=== PATIENT | female | born 1990 | race American Indian/Alaskan Native ===

== ENCOUNTER 2016-05-04 10:39 | Emergency (ER) | payer OTHER ==
[2016-05-04 12:10] VITALS: BP 156/84
[2016-05-04] MEDS ORDERED: TYLENOL PO ONE (12:10)
[2016-05-04 12:57] LABS: Hematocrit 37.4 % (30.3-42.9); Hemoglobin 12.3 gm/dl (10.1-14.3); Mean Corpuscular HGB Conc 33 % (30-34); Mean Corpuscular Hemoglobin 29 pg (28-32); Mean Corpuscular Volume 87 fl (79-97); Platelet Count 278 K/mm3 (140-440); Red Blood Count 4.31 M/mm3 (3.65-5.03); Red Cell Distribution Width 13.7 % (13.2-15.2); White Blood Count 4.1 K/mm3 (4.5-11.0)
[2016-05-04 13:18] LABS: Anion Gap 19 mmol/L; BUN/Creatinine Ratio 8.75; Blood Urea Nitrogen 7 mg/dL (7-17); Calcium 9.3 mg/dL (8.4-10.2); Carbon Dioxide 23 mmol/L (22-30); Chloride 97.5 mmol/L (98-107); Glucose 76 mg/dL (65-100); Potassium 3.8 mmol/L (3.6-5.0); Sodium 136 mmol/L (137-145)
[2016-05-04 13:40] LABS: Bilirubin,Urine NEG (Negative); Blood,Urine NEG (Negative); Ketones,Urine TR mg/dL (Negative); Leukocyte Esterase,Urine TR (Negative); Mucus,Urine 3+ /HPF; Nitrite,Urine NEG (Negative)
[2016-05-04 13:49] LABS: Basophils % (Manual) 0 % (0.0-1.8); Blastocytes % (Manual) 0 %; Eosinophils % (Manual) 0 % (0.0-4.3); RBC Morphology Normal
[2016-05-04 13:50] LABS: Diff Status Complete
[2016-05-04] MEDS ORDERED: TORADOL IM ONE (19:59)
[2016-05-04] MEDS ORDERED: ZOFRAN ODT PO ONE (19:59)
[2016-05-04] MEDS ORDERED: NORCO 7.5/325 PO ONE (19:59)
[2016-05-04] MEDS ORDERED: TESSALON PERLES PO ONE (20:00)
[2016-05-04] MEDS ORDERED: MUCINEX ER PO ONE (20:00)
--- NOTE | 2016-05-04 20:14 | Emergency Department Report ---
HPI - General Chief Complaint: Nausea/Vomiting/Diarrhea Time Seen by Provider: 05/04/16 19:43 - HPI HPI: The patient is a 25-year-old female who presents for evaluation of cough and chest pain. Patient reports a mild productive cough for the past one day, and associated with generalized bodyaches, and bilateral moderate to severe aching in quality chest pain, exacerbated with coughing and improved at rest. She has also experienced some intermittent nausea and nonbilious, nonbloody emesis. The patient denies fever, trauma to the chest wall, syncope, dyspnea, hemoptysis , abdominal pain, unilateral leg swelling, recent immobilization, history of DVT or PE, recent cancer, history of cocaine or other stimulant use, history of congenital heart disease, or history of sudden cardiac in family members. ED Past Medical Hx - Past Medical History Hx Hypertension: Yes - Social History Smoking Status: Current Every Day Smoker Substance Use Type: None - Medications Home Medications: Home Medications Medication Instructions Recorded Confirmed Last Taken Type Acetaminophen [Tylenol] 500 mg PO Q6HR #20 tablet 05/04/16 Unknown Rx Ibuprofen [Motrin] 800 mg PO Q6HR PRN #20 tablet 05/04/16 Unknown Rx Ondansetron [Zofran TAB] 4 mg PO Q8HR PRN #14 tablet 05/04/16 Unknown Rx Promethazine /Codeine 5 ml PO Q6H PRN #120 ml 05/04/16 Unknown Rx [Phenergan/Codeine 6.25-10 mg/5Ml] ED Review of Systems ROS: Stated complaint: BODY ACHES/VOMITING/FEVER/FLU SYMPTOMS Other details as noted in HPI Constitutional: denies: fever ENT: denies: throat or neck pain Respiratory: reports cough, denies:shortness of breath Cardiovascular: reports chest pain Endocrine: denies unexplained weight loss or gain Gastrointestinal: denies: abdominal pain, nausea Genitourinary: denies: dysuria Musculoskeletal: denies: leg swelling Skin: denies: rash Neurological: denies: headache Hematological/Lymphatic: denies: easy bleeding or easy bruising Psych: denies sadness or hopelessness Physical Exam - Physical Exam Vital Signs: Vital Signs 05/04/16 05/04/16 12:05 12:13 Temperature 101.0 F H Pulse Rate 87 Respiratory 19 18 Rate Blood Pressure 156/84 O2 Sat by Pulse 100 Oximetry Physical Exam: General: well-nourished, well-developed, no acute distress Head: Normocephalic, atraumatic Eyes: normal sclera ENT: Mucous membranes are pink and moist, bilateral nasal congestion present Neck: trachea midline, neck supple, No neck stiffness, no cervical adenopathy Respiratory: Breath sounds equal bilaterally, no wheezing, rales, or rhonchi, bronchitic upper airway end-expiratory wheeze present Cardio: S1 and S2 present, no murmurs, rubs, gallops, capillary refill is brisk Chest wall: positive bilateral anterior chest wall tenderness to palpation present, pain reproduced with movement of the arms Abdomen: Normoactive bowel sounds, soft abdomen, no rigidity, no guarding or rebound tenderness Musc: No pitting edema Skin: No rash Neuro: no facial drooping, normal speech Psych: Normal affect ED Course Vital Signs 05/04/16 05/04/16 12:05 12:13 Temperature 101.0 F H Pulse Rate 87 Respiratory 19 18 Rate Blood Pressure 156/84 O2 Sat by Pulse 100 Oximetry ED Medical Decision Making - Lab Data Result diagrams: 05/04/16 12:36 05/04/16 12:36 - Medical Decision Making The patient was seen and examined by myself. The patient is placed on a cardiac technologist and continuous pulse ox. On initial evaluation, the patient was found to be in no distress, with mild fever of 101F. Evaluation orders were placed. EKG was negative for findings suggestive of acute cardiac infarct. The patient is given Tessalon Perles for their cough and Mucinex for nasal congestion. She is given Tylenol for her fever, Zofran for nausea, and an IM dose of Toradol for her pain. Chest x-ray is negative for pulmonary vessel congestion, pleural effusion, focal consolidation, or other acute cardio pulmonary disease process. Lab results were not concerning. The patient was reevaluated and reported that their symptoms were markedly improved. On reexamination the patient is found to have normal respiratory rate and O2 sat on pulse oximetry, with no costal retractions or diminishment of breath sounds on auscultation. The patient is stable for discharge with outpatient follow- up. The patient is given follow-up and return instructions. The patient expressed understanding and agreed with the plan. The patient is discharged in stable condition. Critical care attestation.: If time is entered above; I have spent that time in minutes in the direct care of this critically ill patient, excluding procedure time. ED Disposition Clinical Impression: Acute viral syndrome, Upper respiratory infection, acute, Myalgia, Acute chest wall pain Disposition: DISCHARGED TO HOME OR SELFCARE Is pt being admited?: No Does the pt Need Aspirin: No Condition: Stable Instructions: Viral Syndrome (ED), Upper Respiratory Infection (ED), Musculoskeletal Pain (ED), Chest Pain (ED) Referrals: PRIMARY CARE, [Primary Care Provider] - 3-5 Days Time of Disposition: 20:14
--- NOTE | 2016-05-06 07:43 | XRay Report ---
AP CHEST: HISTORY: chest pain AP view of the chest demonstrates a normal mediastinal and cardiac contour with clear lungs and normal bony and soft tissue structures. IMPRESSION: Unremarkable AP chest.
== END 2016-05-04 20:43 | disposition home or self-care (01) ==
LOC: ED 10:39
DX: B34.9 Viral infection, unspecified (principal); J06.9 Acute upper respiratory infection, unspecified; F17.200 Nicotine dependence, unspecified, uncomplicated; I10 Essential (primary) hypertension
CPT/HCPCS: 36415; 71010; 80048; 81001; 84703; 85007; 85025; 96372; 99284; J1885; Q0162

== ENCOUNTER 2016-10-25 21:42 | Emergency (ER) | payer MEDICAID ==
[2016-10-25 22:19] VITALS: BP 131/83
[2016-10-25] MEDS ORDERED: TYLENOL PO ONE (22:19)
[2016-10-26 00:07] LABS: Bilirubin,Urine NEG (Negative); Blood,Urine NEG (Negative); Ketones,Urine 20 mg/dL (Negative); Leukocyte Esterase,Urine MOD (Negative); Mucus,Urine 3+ /HPF; Nitrite,Urine NEG (Negative)
--- NOTE | 2016-11-15 15:00 | ED Elopement Review ---
ED Pt Elopement review - Results review Lab results: Laboratory Tests 10/25/16 Unknown Urine Color Zainab Urine Turbidity Clear Urine pH 5.0 Ur Specific [place] 1.033 H Urine Protein 30 mg/dl Urine Glucose (UA) Neg Urine Ketones 20 Urine Blood Neg Urine Nitrite Neg Urine Bilirubin Neg Urine Urobilinogen 4.0 Ur Leukocyte Esterase Mod Urine WBC (Auto) 24.0 H Urine RBC (Auto) 9.0 U Epithel Cells (Auto) 17.0 H Urine Mucus 3+ Urine HCG, Qual Negative - Call Back decision Pt Call Back Decision: Pt to F/U with PMD
== END 2016-10-26 04:25 | disposition left against medical advice (07) ==
LOC: ED 21:42
DX: R50.9 Fever, unspecified (principal); Z53.21 Procedure and treatment not carried out due to patient leaving prior to being seen by health care provider
CPT/HCPCS: 81001; 81025

== ENCOUNTER 2016-10-26 07:15 | Emergency (ER) | payer MEDICAID ==
[2016-10-26 07:46] LABS: Hematocrit 38.5 % (30.3-42.9); Hemoglobin 12.8 gm/dl (10.1-14.3); Mean Corpuscular HGB Conc 33 % (30-34); Mean Corpuscular Hemoglobin 29 pg (28-32); Mean Corpuscular Volume 89 fl (79-97); Platelet Count 305 K/mm3 (140-440); Red Blood Count 4.35 M/mm3 (3.65-5.03); White Blood Count 5.6 K/mm3 (4.5-11.0)
--- NOTE | 2016-10-26 08:07 | Emergency Department Report ---
ED Fever HPI - General Chief Complaint: Fever Stated Complaint: FEVER/BODY PAIN Time Seen by Provider: 10/26/16 07:55 Source: patient, family Exam Limitations: no limitations - History of Present Illness Initial Comments: Patient here complaining of fever and body aches for 2 days. She says she was seen here last night and they did a urine test on her but she couldn't wait to be seen so she went home and she is returned this morning. She is reporting that she is having in generalized body ache that is 10 out of 10. Reports abdominal cramping on and off. She reports some nausea without any vomiting. Reports urinary frequency but no burning in or urgency. Denies any diarrhea. She says she took [id number] Tylenol and it's not helping. She denies any coughing, chest pain or shortness of breath. Denies any neck pain or stiffness. Denies any congestion. Denies any earache. Denies any vaginal bleeding or discharge. Menstrual cycle was 09/30/2016. Timing/Duration: yesterday Fever Severity/Quality: low grade Fever Therapy STROKE COORDINATOR: Tylenol Associated Symptoms: abdominal pain, muscle aches, nausea/vomiting. denies: chest pain, confusion, cough, diaphoresis, headache, rash, shortness of breath, sore throat, stiff neck, syncope, weakness ED Review of Systems ROS: Stated complaint: FEVER/BODY PAIN Other details as noted in HPI Comment: All other systems reviewed and negative Constitutional: chills, fever Eyes: denies: eye pain, eye discharge ENT: denies: ear pain, throat pain Respiratory: no symptoms reported Cardiovascular: denies: chest pain, palpitations, edema, syncope Gastrointestinal: abdominal pain, nausea. denies: vomiting, diarrhea, constipation, hematemesis, melena, hematochezia Genitourinary: frequency. denies: urgency, dysuria, hematuria, discharge Skin: denies: rash Neurological: denies: headache, weakness, numbness, paresthesias, confusion, abnormal gait, vertigo ED Past Medical Hx - Past Medical History Previous Medical History?: Yes Hx Hypertension: Yes (with ) - Surgical History Past Surgical History?: No - Family History Family history: no significant - Social History Smoking Status: Current Every Day Smoker Substance Use Type: Alcohol, Marijuana, Non Opiate Pain Other Social History: Singe - Medications Home Medications: Home Medications Medication Instructions Recorded Confirmed Last Taken Type Acetaminophen [Tylenol] 500 mg PO Q6HR #20 tablet 05/04/16 Unknown Rx Promethazine /Codeine 5 ml PO Q6H PRN #120 ml 05/04/16 Unknown Rx [Phenergan/Codeine 6.25-10 mg/5Ml] Ibuprofen [Motrin 800 MG tab] 800 mg PO Q6HR PRN #20 tablet 10/26/16 Unknown Rx Nitrofurantoin [place]/M-Cryst 100 mg PO Q12HR #14 capsule 10/26/16 Unknown Rx [Macrobid CAP] Ondansetron [Zofran TAB] 4 mg PO Q8HR PRN #14 tablet 10/26/16 Unknown Rx ED Physical Exam - General Limitations: No Limitations ED Course Vital Signs 10/26/16 10/26/16 07:19 09:52 Temperature 99.5 F Pulse Rate 103 H 89 Respiratory 18 Rate Blood Pressure 140/95 O2 Sat by Pulse 100 Oximetry - Reevaluation(s) Reevaluation #1: 10/26/16 10:01 Patient given 1 L of IV fluid normal saline, Zofran 4 mg IV, Toradol 30 mg IV. She was also given Tylenol 650 mg 1 dose for body aches and low-grade fever. He is stable and says she feels better. Urine specimen sent for cultures. ED Medical Decision Making - Lab Data Result diagrams: 10/26/16 07:32 10/26/16 07:32 Lab Results 10/26/16 10/26/16 10/26/16 Range/Units 07:32 07:32 07:32 WBC 5.6 (4.5-11.0) K/mm3 RBC 4.35 (3.65-5.03) M/mm3 Hgb 12.8 (10.1-14.3) gm/dl Hct 38.5 (30.3-42.9) % MCV 89 (79-97) fl MCH 29 (28-32) pg MCHC 33 (30-34) % RDW 14.0 (13.2-15.2) % Plt Count 305 (140-440) K/mm3 [place] % (Auto) Property Supervisor Add Manual Diff Complete Total Counted 100 Seg Neuts % (Manual) 63.0 (40.0-70.0) % Band Neutrophils % 0 % Lymphocytes % (Manual) 22.0 (13.4-35.0) % Reactive Lymphs % (Man) 0 % Monocytes % (Manual) 14.0 H (0.0-7.3) % Eosinophils % (Manual) 1.0 (0.0-4.3) % Basophils % (Manual) 0 (0.0-1.8) % Metamyelocytes % 0 % Myelocytes % 0 % Promyelocytes % 0 % Blast Cells % 0 % Nucleated RBC % Not Reportable Seg Neutrophils # Man 3.5 (1.8-7.7) K/mm3 Band Neutrophils # 0.0 K/mm3 Lymphocytes # (Manual) 1.2 (1.2-5.4) K/mm3 Abs React Lymphs (Man) 0.0 K/mm3 Monocytes # (Manual) 0.8 (0.0-0.8) K/mm3 Eosinophils # (Manual) 0.1 (0.0-0.4) K/mm3 Basophils # (Manual) 0.0 (0.0-0.1) K/mm3 Metamyelocytes # 0.0 K/mm3 Myelocytes # 0.0 K/mm3 Promyelocytes # 0.0 K/mm3 Blast Cells # 0.0 K/mm3 WBC Morphology Not Reportable Hypersegmented Neuts Not Reportable Hyposegmented Neuts Not Reportable Hypogranular Neuts Not Reportable Smudge Cells Not Reportable Toxic Granulation Not Reportable Toxic Vacuolation Not Reportable Dohle Bodies Not Reportable Pelger-Huet Anomaly Not Reportable Sosa Rods Not Reportable Platelet Estimate Appears normal Clumped Platelets Not Reportable Plt Clumps, EDTA Not Reportable Large Platelets Not Reportable Giant Platelets Not Reportable Platelet Satelliting Not Reportable Plt Morphology Comment Not Reportable RBC Morphology Normal Dimorphic RBCs Not Reportable Polychromasia Not Reportable Hypochromasia Not Reportable Poikilocytosis Not Reportable Anisocytosis Not Reportable Microcytosis Not Reportable Macrocytosis Not Reportable Spherocytes Not Reportable Pappenheimer Bodies Not Reportable Sickle Cells Not Reportable Target Cells Not Reportable Tear Drop Cells Not Reportable Ovalocytes Not Reportable Helmet Cells Not Reportable [place] Bodies Not Reportable [place] Rings Not Reportable [place] Cells Not Reportable Bite Cells Not Reportable Crenated Cell Not Reportable Elliptocytes Not Reportable Acanthocytes (Spur) Not Reportable Rouleaux Not Reportable Hemoglobin C Crystals Not Reportable Schistocytes Not Reportable Malaria parasites Not Reportable [place] Bodies Not Reportable Hem Pathologist Commnt No Sodium 139 (137-145) mmol/L Potassium 4.1 (3.6-5.0) mmol/L Chloride 100.2 (98-107) mmol/L Carbon Dioxide 25 (22-30) mmol/L Anion Gap 18 mmol/L BUN 9 (7-17) mg/dL Creatinine 0.7 (0.7-1.2) mg/dL Estimated GFR > 60 ml/min BUN/Creatinine Ratio 12.85 % Glucose 92 (65-100) mg/dL Calcium 9.2 (8.4-10.2) mg/dL Lipase 25 (13-60) units/L Urine culture pending that was taken this morning. Lab work for 10/25/2016 for urinalysis which is positive for urinary tract infection. Urine was slightly contaminated but she has positive white count and moderate leukocyte Estrace and ketones. test negative - Medical Decision Making ED course: Returning from yesterday complaining of feeling sick with nausea, urinary frequency, generalized body aches. She had a urine test done yesterday with and she says she left because she was waiting too long. Patient and urine that was done 10/25/2016. UA positive ketones 20 ,Positive for white blood cell and leukocyte Estrace, also positive for epithelial cell at 17 which is slightly contaminated. Urine culture sent today. She had CBC and BMP that was done today that were in normal limits. Patient given normal saline 1 L due to mild dehydration, Tylenol 650 mg by mouth for bodyaches and low-grade fever, Toradol 30 mg IV and Zofran 4 mg IV for nausea. Patient feels better and she is no longer nauseous. Discussed the patient diagnosis and treatment plan and I also discussed her lab results with her. She voiced understanding of discharge diagnosis and treatment plan. She does have a primary care doctor so she will follow-up with PCP Laboratory: UA 10/25/2016 with moderate leukocyte Estrace, positive white blood cell with contamination of epithelial cell. Positive ketone at 20. Urine hCG negative for , CBC and BMP stable Assessment/Plan 1. Acute cystitis without hematuria 2. Mild dehydration with positive ketones at 20 3. Nausea without vomiting 4. Urinary frequency 5. Fever in adults 6. Body aches Patient given prescription for Phenergan, Motrin and Macrobid. Hydration encouraged. She is to follow up with her primary care physician in 2-3 days Critical care attestation.: If time is entered above; I have spent that time in minutes in the direct care of this critically ill patient, excluding procedure time. ED Disposition Clinical Impression: Acute cystitis without hematuria, Nausea alone, Body aches, Fever in adult, Urinary frequency Disposition: TO HOME OR SELFCARE Is pt being admited?: No Does the pt Need Aspirin: No Condition: Stable Instructions: Urinary Tract Infection in Women (ED), Fever in Adults (ED), Acute Nausea and Vomiting (ED) Additional Instructions: Take Macrobid for urinary tract infection Take Zofran as needed for nausea or vomiting and Please increase her fluid intake to 2-3 L a day. call your primary care office today to schedule an appointment Prescriptions: Ibuprofen [Motrin 800 MG tab] 800 mg PO Q6HR PRN #20 tablet PRN Reason: Pain Nitrofurantoin [place]/M-Cryst [Macrobid CAP] 100 mg PO Q12HR #14 capsule Ondansetron [Zofran TAB] 4 mg PO Q8HR PRN #14 tablet PRN Reason: Nausea Referrals: PRIMARY CARE,MD [Primary Care Provider] - 2-3 Days Forms: Work/School Release Form(ED)
[2016-10-26] MEDS ORDERED: NACL 0.9% 1000 ML 1,000 ML IV ONE (08:08)
[2016-10-26] MEDS ORDERED: TORADOL IV ONE (08:08)
[2016-10-26] MEDS ORDERED: ZOFRAN IV ONE (08:08)
[2016-10-26] MEDS ORDERED: TYLENOL PO ONE (08:09)
[2016-10-26 08:10] LABS: Anion Gap 18 mmol/L; BUN/Creatinine Ratio 12.85; Blood Urea Nitrogen 9 mg/dL (7-17); Calcium 9.2 mg/dL (8.4-10.2); Carbon Dioxide 25 mmol/L (22-30); Chloride 100.2 mmol/L (98-107); Glucose 92 mg/dL (65-100); Potassium 4.1 mmol/L (3.6-5.0); Sodium 139 mmol/L (137-145)
[2016-10-26] MEDS ORDERED: ROCEPHIN/NS 1 GM/50 ML 1 GM/50 ML BAG IV ONE (08:32)
[2016-10-26 08:41] LABS: Basophils % (Manual) 0 % (0.0-1.8); Blastocytes % (Manual) 0 %; Diff Status Complete; RBC Morphology Normal
[2016-10-26 10:21] VITALS: BP 120/69
[2016-10-26 11:06] LABS: Bacteria,Urine 1+ /HPF (Negative); Bilirubin,Urine NEG (Negative); Blood,Urine NEG (Negative); Ketones,Urine 20 mg/dL (Negative); Leukocyte Esterase,Urine SM (Negative); Mucus,Urine 3+ /HPF; Nitrite,Urine NEG (Negative)
== END 2016-10-26 10:21 | disposition home or self-care (01) ==
LOC: ED 07:15
DX: N30.00 Acute cystitis without hematuria (principal); R11.0 Nausea; M79.1 Myalgia; R50.9 Fever, unspecified; F17.200 Nicotine dependence, unspecified, uncomplicated; F12.90 Cannabis use, unspecified, uncomplicated
CPT/HCPCS: 36415; 80048; 81001; 83690; 85007; 85025; 87086; 96365; 96375; 99283; J0696; J1885; J2405; J7030

== ENCOUNTER 2017-04-02 06:33 | Emergency (ER) | payer MEDICAID ==
[2017-04-02 07:55] VITALS: BP 172/85
[2017-04-02] MEDS ORDERED: DILAUDID IM ONE (09:14)
--- NOTE | 2017-04-02 09:15 | Emergency Department Report ---
ED ENT HPI - General Chief complaint: Dental/Oral Stated complaint: EARACHE, TOOTHACHE Time Seen by Provider: 04/02/17 09:01 Source: patient Mode of arrival: Ambulatory Limitations: No Limitations - History of Present Illness Initial comments: This is a 26-year-old female, the patient indicates that she is not , patient presents to the ER complaint of severe left-sided dental pain, over tooth #16/15. The pain is sharp, increases with palpation, eating, drinking, temperature. It is also associated with left-sided otalgia. The patient indicates no neck pain or neck stiffness, also has a mild headache, no weakness , numbness. Patient has no chest pain, abdominal pain or shortness of breath. She reports that she is nauseous and feels like she wants to retch. MD complaint: tooth pain, ear pain -: Gradual, days(s) Location: L ear Severity: severe Quality: burning, stabbing, aching Consistency: constant Improves with: other medication, rest Worsens with: position, eating Context- Dental: poor dental care Associated Symptoms: toothache. denies: fever, cough, gum swelling, pain with swallowing, sore throat, tinnitus, hearing loss, discharge from ear, rhinorrhea - Related Data Previous Rx's Medication Instructions Recorded Last Taken Type Acetaminophen [Tylenol] 500 mg PO Q6HR #20 tablet 05/04/16 Unknown Rx Promethazine /Codeine 5 ml PO Q6H PRN #120 ml 05/04/16 Unknown Rx [Phenergan/Codeine 6.25-10 mg/5Ml] Ibuprofen [Motrin 800 MG tab] 800 mg PO Q6HR PRN #20 tablet 10/26/16 Unknown Rx Nitrofurantoin [place]/M-Cryst 100 mg PO Q12HR #14 capsule 10/26/16 Unknown Rx [Macrobid CAP] Ondansetron [Zofran TAB] 4 mg PO Q8HR PRN #14 tablet 10/26/16 Unknown Rx Chlorhexidine Mouthwash [Peridex] 15 ml MM BID #1 bottle 04/02/17 Unknown Rx Ibuprofen [Motrin] 600 mg PO Q8H PRN #30 tablet 04/02/17 Unknown Rx Ondansetron [Zofran Odt] 4 mg PO Q8HR PRN #20 tab.rapdis 04/02/17 Unknown Rx Penicillin V Potassium 500 mg PO BID #14 tablet 04/02/17 Unknown Rx oxyCODONE [Roxicodone] 5 mg PO Q6HR PRN #15 tablet 04/02/17 Unknown Rx Allergies Allergy/AdvReac Type Severity Reaction Status Date / Time No Known Allergies Allergy Verified 05/04/16 12:09 ED Dental HPI - General Chief complaint: Dental/Oral Stated complaint: EARACHE, TOOTHACHE Time Seen by Provider: 04/02/17 09:01 Source: patient Mode of arrival: Ambulatory Limitations: No Limitations - Related Data Previous Rx's Medication Instructions Recorded Last Taken Type Acetaminophen [Tylenol] 500 mg PO Q6HR #20 tablet 05/04/16 Unknown Rx Promethazine /Codeine 5 ml PO Q6H PRN #120 ml 05/04/16 Unknown Rx [Phenergan/Codeine 6.25-10 mg/5Ml] Ibuprofen [Motrin 800 MG tab] 800 mg PO Q6HR PRN #20 tablet 10/26/16 Unknown Rx Nitrofurantoin [place]/M-Cryst 100 mg PO Q12HR #14 capsule 10/26/16 Unknown Rx [Macrobid CAP] Ondansetron [Zofran TAB] 4 mg PO Q8HR PRN #14 tablet 10/26/16 Unknown Rx Chlorhexidine Mouthwash [Peridex] 15 ml MM BID #1 bottle 04/02/17 Unknown Rx Ibuprofen [Motrin] 600 mg PO Q8H PRN #30 tablet 04/02/17 Unknown Rx Ondansetron [Zofran Odt] 4 mg PO Q8HR PRN #20 tab.rapdis 04/02/17 Unknown Rx Penicillin V Potassium 500 mg PO BID #14 tablet 04/02/17 Unknown Rx oxyCODONE [Roxicodone] 5 mg PO Q6HR PRN #15 tablet 04/02/17 Unknown Rx Allergies Allergy/AdvReac Type Severity Reaction Status Date / Time No Known Allergies Allergy Verified 05/04/16 12:09 ED Review of Systems ROS: Stated complaint: EARACHE, TOOTHACHE Other details as noted in HPI ED Past Medical Hx - Past Medical History Previous Medical History?: Yes Hx Hypertension: Yes (with ) Additional medical history: Vaginal dleivery 09-13-2010 - Surgical History Past Surgical History?: No - Social History Smoking Status: Current Some Day Smoker Substance Use Type: Alcohol, Non Opiate Pain - Medications Home Medications: Home Medications Medication Instructions Recorded Confirmed Last Taken Type Acetaminophen [Tylenol] 500 mg PO Q6HR #20 tablet 05/04/16 Unknown Rx Promethazine /Codeine 5 ml PO Q6H PRN #120 ml 05/04/16 Unknown Rx [Phenergan/Codeine 6.25-10 mg/5Ml] Ibuprofen [Motrin 800 MG tab] 800 mg PO Q6HR PRN #20 tablet 10/26/16 Unknown Rx Nitrofurantoin [place]/M-Cryst 100 mg PO Q12HR #14 capsule 10/26/16 Unknown Rx [Macrobid CAP] Ondansetron [Zofran TAB] 4 mg PO Q8HR PRN #14 tablet 10/26/16 Unknown Rx Chlorhexidine Mouthwash [Peridex] 15 ml MM BID #1 bottle 04/02/17 Unknown Rx Ibuprofen [Motrin] 600 mg PO Q8H PRN #30 tablet 04/02/17 Unknown Rx Ondansetron [Zofran Odt] 4 mg PO Q8HR PRN #20 tab.rapdis 04/02/17 Unknown Rx Penicillin V Potassium 500 mg PO BID #14 tablet 04/02/17 Unknown Rx oxyCODONE [Roxicodone] 5 mg PO Q6HR PRN #15 tablet 04/02/17 Unknown Rx ED Physical Exam - General Limitations: No Limitations General appearance: alert, in distress - Head Head exam: Present: atraumatic, normocephalic - Eye Eye exam: Present: normal appearance, PERRL, EOMI. Absent: nystagmus - ENT ENT exam: Present: normal exam, normal orophraynx, mucous membranes moist, TM's normal bilaterally, normal external ear exam, other (there is no mastoid tenderness. The helix is unremarkable and within normal limits. There are no vesicles. External auditory canal within normal limits. There is no ear tenderness. Patient has numerous dental caries, no obvious intraoral abscess, there is tenderness to percussion on tooth #15, 16, there is no stridor, there is no trismus, there is no malocclusion. There is no tenderness underneath the base of the tongue. Tooth #15, 16 are both fractured. Appears to be chronically fractured) - Neck Neck exam: Present: normal inspection, full ROM. Absent: tenderness, meningismus - Respiratory Respiratory exam: Present: normal lung sounds bilaterally. Absent: respiratory distress - Cardiovascular Cardiovascular Exam: Present: regular rate, normal rhythm, normal heart sounds. Absent: systolic murmur, diastolic murmur, rubs, gallop - GI/Abdominal GI/Abdominal exam: Present: soft, normal bowel sounds. Absent: distended, tenderness, guarding, rebound, rigid, pulsatile mass - Extremities Exam Extremities exam: Present: normal inspection, full ROM, normal capillary refill. Absent: tenderness, pedal edema, joint swelling - Back Exam Back exam: Present: normal inspection, full ROM. Absent: tenderness, CVA tenderness (R), paraspinal tenderness, vertebral tenderness - Neurological Exam Neurological exam: Present: alert, oriented X3, CN II-XII intact, normal gait, other (Extraocular movements intact. Tongue midline. No facial droop. Facial sensation intact to light touch in the V1, V2, V3 distribution bilaterally. 5 and 5 strength in 4 extremities.. Sensation is intact to light touch in 4 extremities.). Absent: motor sensory deficit - Psychiatric Psychiatric exam: Present: anxious - Skin Skin exam: Present: warm, dry, intact, normal color. Absent: rash ED Course Vital Signs 04/02/17 04/02/17 07:50 09:26 Temperature 98.8 F Pulse Rate 95 H Respiratory 20 20 Rate Blood Pressure 172/85 O2 Sat by Pulse 99 Oximetry ED Medical Decision Making - Lab Data Vital Signs 04/02/17 04/02/17 07:50 09:26 Temperature 98.8 F Pulse Rate 95 H Respiratory 20 20 Rate Blood Pressure 172/85 O2 Sat by Pulse 99 Oximetry - Medical Decision Making Differential diagnosis, including the not limited to: Dentalgia, referred pain, dental caries, incidental elevated blood pressure Assessment and plan: 26-year-old female with poor dental hygiene with pain secondary to dentalgia. Most likely has dental caries. No indication of abscess. Speaking in full sentences. Checked her airway. No clinical evidence of neurologic involvement, her left- sided ear pain is most likely referred pain. Patient medicated with hydromorphone. Patient given a printout of low cost local dental clinics. She will be discharged with pain medication, nausea medication, chlorhexidine mouthwash, and antibiotics. The importance of close outpatient dental follow-up was emphasized to the patient and family, all of whom verbalized understanding. Incidental elevated blood pressure is appreciated, this is most likely secondary to pain, the patient can follow up with the primary care doctor for this. Critical care attestation.: If time is entered above; I have spent that time in minutes in the direct care of this critically ill patient, excluding procedure time. ED Disposition Clinical Impression: Dentalgia Disposition: DC-01 TO HOME OR SELFCARE Is pt being admited?: No Does the pt Need Aspirin: No Condition: Stable Instructions: Dental Abscess (ED), Dental Caries (ED) Additional Instructions: Follow up as soon as possible with an outpatient dentist. Take the pain medication, nausea medication as directed. If taking oxycodone for pain, do not drive, consume alcohol, or make important decisions. Please note that blood pressure was elevated, and this needs to be followed up by a primary care doctor within the next month. Long-term complications of hypertension and elevated blood pressure includes stroke, heart attack, disability, , paralysis, loss of quality of life. Return to the ER right away with new pain, worsened pain, migration of pain, fevers, chills, confusion, intractable nausea or vomiting, inability to tolerate liquid feeds, inability to speak, inability to breathe. Referrals: PRIMARY MD IRIS [Primary Care Provider] - 3-5 Days [facility] [Outside] - 3-5 Days ALEX WEBSTER MD [Staff Physician] - 3-5 Days [facility] [Provider Group] - 3-5 Days
== END 2017-04-02 09:54 | disposition home or self-care (01) ==
LOC: ED 06:33
DX: K08.89 Other specified disorders of teeth and supporting structures (principal)
CPT/HCPCS: 96372; 99282; J1170

== ENCOUNTER 2018-04-11 18:07 | Emergency (ER) | payer MEDICAID, OTHER ==
[2018-04-11 18:46] LABS: Bacteria,Urine 1+ /HPF (Negative); Bilirubin,Urine NEG (Negative); Blood,Urine SM (Negative); Color,Urine Yellow (Yellow); HCG Qualitative,Urine Negative (Negative); Hyaline Casts,Urine 1 /LPF; Mucus,Urine 3+ /HPF
[2018-04-11] MEDS ORDERED: TORADOL IV ONE (18:47)
[2018-04-11] MEDS ORDERED: SUBLIMAZE IV ONE (18:47)
[2018-04-11] MEDS ORDERED: ZOFRAN IV ONE (18:47)
--- NOTE | 2018-04-11 19:52 | Emergency Department Report ---
HPI - General Chief Complaint: Extremity Problem,Nontraumatic Time Seen by Provider: 04/11/18 18:42 ED Past Medical Hx - Past Medical History Hx Hypertension: Yes (with ) Additional medical history: Vaginal dleivery 09-13-2010 - Surgical History Past Surgical History?: No - Social History Smoking Status: Never Smoker Substance Use Type: Alcohol - Medications Home Medications: Home Medications Medication Instructions Recorded Confirmed Last Taken Type Acetaminophen [Tylenol] 500 mg PO Q6HR #20 tablet 05/04/16 Unknown Rx Promethazine /Codeine 5 ml PO Q6H PRN #120 ml 05/04/16 Unknown Rx [Phenergan/Codeine 6.25-10 mg/5Ml] Ibuprofen [Motrin 800 MG tab] 800 mg PO Q6HR PRN #20 tablet 10/26/16 Unknown Rx Nitrofurantoin [place]/M-Cryst 100 mg PO Q12HR #14 capsule 10/26/16 Unknown Rx [Macrobid CAP] Ondansetron [Zofran TAB] 4 mg PO Q8HR PRN #14 tablet 10/26/16 Unknown Rx Chlorhexidine Mouthwash [Peridex] 15 ml MM BID #1 bottle 04/02/17 Unknown Rx Ibuprofen [Motrin] 600 mg PO Q8H PRN #30 tablet 04/02/17 Unknown Rx Ondansetron [Zofran Odt] 4 mg PO Q8HR PRN #20 tab.rapdis 04/02/17 Unknown Rx Penicillin V Potassium 500 mg PO BID #14 tablet 04/02/17 Unknown Rx oxyCODONE [Roxicodone] 5 mg PO Q6HR PRN #15 tablet 04/02/17 Unknown Rx Cyclobenzaprine [Flexeril] 10 mg PO TID PRN #14 tablet 04/11/18 Unknown Rx HYDROcodone/APAP 5-325 [[place] 1 - 2 each PO Q6HR PRN #14 tablet 04/11/18 Unknown Rx 5/325] Ibuprofen [Motrin 800 MG tab] 800 mg PO Q8HR PRN #20 tablet 04/11/18 Unknown Rx ED Review of Systems ROS: Stated complaint: SOULDER DISLOCATED Other details as noted in HPI Physical Exam - Physical Exam Vital Signs: Vital Signs 04/11/18 04/11/18 18:22 19:13 Temperature 98.7 F Pulse Rate 84 Respiratory 18 16 Rate Blood Pressure 156/94 O2 Sat by Pulse 100 98 Oximetry ED Course Vital Signs 04/11/18 04/11/18 18:22 19:13 Temperature 98.7 F Pulse Rate 84 Respiratory 18 16 Rate Blood Pressure 156/94 O2 Sat by Pulse 100 98 Oximetry ED Medical Decision Making - Radiology Data Radiology results: report reviewed (right shoulder x-ray), image reviewed (right shoulder x-ray) interpreted by me: Right shoulder x-ray-no fracture, no dislocation [facility] [address] [place] [address] XRay Report Signed Patient: ROLY GUEVARA MR#: [id number] : 1990 Acct:[id number] Age/Sex: 27 / F ADM Date: 04/11/18 Loc: ED Attending Dr: Ordering Physician: ODALYS VIERA MD Date of Service: 04/11/18 Procedure(s): XR shoulder 2+V RT Accession Number(s): [id number] cc: ODALYS VIERA MD Fluoro Time In Minutes: FINAL REPORT EXAM: XR SHOULDER 2+V RT HISTORY: dislocation TECHNIQUE: Frontal and Y-views right shoulder Comparison: None FINDINGS: There is no evidence of fracture or subluxation/dislocation. The soft tissues are unremarkable. IMPRESSION: 1. No plain film evidence of fracture or subluxation/dislocation. If further imaging is required, CT or MRI may be helpful. Transcribed By: ED Dictated By: REBECCA CAMACHO MD Electronically Authenticated By: REBECCA CAMACHO MD Signed Date/Time: 04/11/181951 DD/ 52 TD/TT: 04/11/181952 - Differential Diagnosis shoulder dislocation, rotator cuff injury, AC separation Critical care attestation.: If time is entered above; I have spent that time in minutes in the direct care of this critically ill patient, excluding procedure time. ED Disposition Clinical Impression: Right shoulder pain Disposition: DC-01 TO HOME OR SELFCARE Is pt being admited?: No Does the pt Need Aspirin: No Condition: Stable Instructions: Rotator Cuff Injury (ED) Additional Instructions: Return to the emergency department immediately should you develop worsening symptoms, fever, inability to tolerate food or liquid or any other concerns. Prescriptions: Cyclobenzaprine [Flexeril] 10 mg PO TID PRN #14 tablet PRN Reason: Muscle Spasm HYDROcodone/APAP 5-325 [[place] 5/325] 1 - 2 each PO Q6HR PRN #14 tablet PRN Reason: Pain Ibuprofen [Motrin 800 MG tab] 800 mg PO Q8HR PRN #20 tablet PRN Reason: Pain, Moderate (4-6) Referrals: JACLYN RAMOS MD [Staff Physician] - 3-5 Days (Dr. Ramos is an orthopedic surgeon. Please follow up with him for further evaluation) Time of Disposition: 19:57
[2018-04-11 20:52] VITALS: BP 121/72
== END 2018-04-11 20:52 | disposition home or self-care (01) ==
LOC: ED 18:07
DX: M25.511 Pain in right shoulder (principal); I10 Essential (primary) hypertension
CPT/HCPCS: 73030; 81001; 81025; 96374; 96375; 99284; J1885